=== PATIENT | female | born 1955 | race Caucasian/White ===

== ENCOUNTER 2018-12-10 20:54 | Emergency (ER) | payer OTHER ==
[~2018-12-10] VITALS: Ht 160 cm; Wt 113.4 kg
[2018-12-10] MEDS ORDERED: Cleocin HCl300 MG PO (22:42)
== END 2018-12-10 22:57 | disposition home or self-care (01) ==
LOC: ER 20:54
DX: R59.0 Localized enlarged lymph nodes (principal); K08.89 Other specified disorders of teeth and supporting structures; R03.0 Elevated blood-pressure reading, without diagnosis of hypertension; Z88.0 Allergy status to penicillin; F17.200 Nicotine dependence, unspecified, uncomplicated
CPT/HCPCS: 99283

== ENCOUNTER → 2020-12-17 | Outpatient (CLI) | payer OTHER ==
[~2020-12-17] MED LIST: Cleocin HCl300 MG PO
== END | disposition home or self-care (01) ==
LOC: LAB 16:11 → LAB SHORT 16:11
DX: N39.0 Urinary tract infection, site not specified (principal)
CPT/HCPCS: 87077; 87086; 87147; 87186